=== PATIENT | female | born 1940 | race American Indian/Alaskan Native ===

== ENCOUNTER 2017-07-22 15:04 | Inpatient (IN) | payer MEDICARE ==
[2017-07-22 16:16] LABS: Basophils % (Auto) 0.5 % (0.0-1.8); Eosinophils % (Auto) 2.2 % (0.0-4.3); Hematocrit 32.3 % (30.3-42.9); Hemoglobin 10.3 gm/dl (10.1-14.3); Mean Corpuscular HGB Conc 32 % (30-34); Mean Corpuscular Hemoglobin 29 pg (28-32); Mean Corpuscular Volume 91 fl (79-97); Platelet Count 244 K/mm3 (140-440); Red Blood Count 3.56 M/mm3 (3.65-5.03); Red Cell Distribution Width 15.5 % (13.2-15.2); White Blood Count 7.3 K/mm3 (4.5-11.0)
[2017-07-22 16:28] LABS: Calcium 8.8 mg/dL (8.4-10.2); Potassium 5.4 mmol/L (3.6-5.0)
--- NOTE | 2017-07-22 17:11 | Emergency Department Report ---
HPI - General Chief Complaint: Dyspnea/Respdistress Time Seen by Provider: 07/22/17 15:20 - HPI HPI: This is a 76 year-old female presents to the emergency department by EMS from the gastroenterology procedural Center after the patient appeared to have some oxygen desaturation, respiratory arrest and subsequent code at the end of a EGD. I later spoke to GI, Dr Blackmon, who said that there was no obvious no complications from the procedure but she started having a low oxygen saturation and appeared to stop breathing and therefore was intubated. She did require some chest compressions and I believe she also did receive a dose of epinephrine. The patient presents to the emergency department intubated but appearing awake and alert and trying to pull her endotracheal tube out. Patient does have a history of dementia and the daughter is bedside and says that she will talk and follow some commands but does have some baseline confusion. She also has a past medical history of diabetes, GERD, chronic kidney disease not on hemodialysis and diabetic neuropathy. ED Past Medical Hx - Past Medical History Hx Diabetes: Yes Hx GERD: Yes Hx Renal Disease: Yes (stage 3 kidney failure) Hx Arthritis: Yes Hx Dementia: Yes Additional medical history: Diabetic peripheral neuropathy - Surgical History Additional Surgical History: left knee surgery. - Social History Smoking Status: Never Smoker Substance Use Type: None - Medications Home Medications: Home Medications Medication Instructions Recorded Confirmed Last Taken Type Pregabalin [Lyrica] 100 mg PO BID 09/28/13 07/22/17 07/21/17 History Insulin Aspart [NovoLOG Flexpen] 8 units SQ BID 07/22/17 07/22/17 07/21/17 History Insulin Glargine,Hum.rec.anlog 18 units SQ QHS 07/22/17 07/22/17 07/21/17 History [Toujeo Solostar] Lubiprostone [Amitiza] 8 mcg PO QDAY 07/22/17 07/22/17 07/21/17 History traMADol [Ultram] 50 mg PO Q4HR PRN 07/22/17 07/22/17 07/21/17 History ED Review of Systems ROS: Stated complaint: ALEKSANDR Other details as noted in HPI Comment: Unobtainable due to pts medical conditions Physical Exam - Physical Exam Vital Signs: Vital Signs 07/22/17 07/22/17 07/22/17 15:04 15:15 15:18 Temperature 97.8 F Pulse Rate 70 70 68 Respiratory 13 21 18 Rate Blood Pressure 125/48 125/48 O2 Sat by Pulse 100 100 100 Oximetry 07/22/17 07/22/17 07/22/17 15:30 15:45 15:49 Temperature Pulse Rate 67 67 Respiratory 13 15 20 Rate Blood Pressure 125/48 116/53 O2 Sat by Pulse 99 98 Oximetry 07/22/17 07/22/17 07/22/17 16:00 16:15 16:30 Temperature Pulse Rate 65 65 63 Respiratory 14 12 15 Rate Blood Pressure 116/53 130/52 118/44 O2 Sat by Pulse 98 Oximetry Physical Exam: GENERAL: The patient is well-developed well-nourished. She is currently intubated but appears awake and trying to extubate herself. HENT: Normocephalic. Atraumatic. Patient has moist mucous membranes. Endotracheal tube and collar in place. EYES: Extraocular motions are intact. Pupils equal reactive to light bilaterally. NECK: Supple. Trachea is midline. CHEST/LUNGS: Clear to auscultation. There is no respiratory distress noted. HEART/CARDIOVASCULAR: Regular. There is no tachycardia. There is no gallop rub or murmur. ABDOMEN: Abdomen is soft, nontender. Patient has normal bowel sounds. There is no abdominal distention. SKIN: Skin is warm and dry. NEURO: The patient is awake and following some commands despite intubation. Patient later, after extubation, displayed normal speech. MUSCULOSKELETAL: There is no tenderness or deformity. There is no evidence of acute injury. ED Course Vital Signs 07/22/17 07/22/17 07/22/17 15:04 15:15 15:18 Temperature 97.8 F Pulse Rate 70 70 68 Respiratory 13 21 18 Rate Blood Pressure 125/48 125/48 O2 Sat by Pulse 100 100 100 Oximetry 07/22/17 07/22/17 07/22/17 15:30 15:45 15:49 Temperature Pulse Rate 67 67 Respiratory 13 15 20 Rate Blood Pressure 125/48 116/53 O2 Sat by Pulse 99 98 Oximetry 07/22/17 07/22/17 07/22/17 16:00 16:15 16:30 Temperature Pulse Rate 65 65 63 Respiratory 14 12 15 Rate Blood Pressure 116/53 130/52 118/44 O2 Sat by Pulse 98 Oximetry - Procedure Description Procedures done: Procedure: Extubation. The patient was breathing over her endotracheal tube. She is awake and attempting to extubate herself. She was taken into the examination room with respiratory therapy at bedside. She was placed on cardiac monitors. She had an IV access available. The cuff was deflated. Patient started coughing and during her coughing and/or expiration the endotracheal tube was pulled. She was then placed on a Venturi mask. She was 100% oxygenation on pulse ox monitor and did not appear to be in any respiratory distress. There was no stridor, drooling, trismus. She appeared to tolerate this procedure well. ED Medical Decision Making - Lab Data Result diagrams: 07/22/17 22:42 07/22/17 22:42 - EKG Data -: EKG Interpreted by Me EKG shows normal: sinus rhythm, axis, intervals, QRS complexes, ST-T waves Rate: normal - EKG Data When compared to previous EKG there are: previous EKG unavailable Interpretation: normal EKG - Radiology Data Radiology results: report reviewed, image reviewed interpreted by me: Chest x-ray did not show any obvious rib fracture, pneumothorax or any acute process. Abdominal x-ray shows some nonspecific dilation of stomach and bowel with increased gas. EXAM: CT ABDOMEN PELVIS WO CON HISTORY: Abd pain TECHNIQUE: CT abdomen and pelvis without contrast PRIORS: None. FINDINGS: No acute abnormality identified in the lung bases. No focal abnormality identified within the liver parenchyma. The spleen demonstrates normal size and attenuation. No pancreatic abnormalities seen. Kidneys demonstrate no evidence of hydronephrosis or nephrolithiasis. No ureteral calculus identified. The adrenal glands are unremarkable. Abdominal aorta is normal in caliber. No pathologically enlarged lymph nodes are identified. No signs of free fluid or free air No evidence of small bowel dilatation. No pericolonic inflammatory changes are observed. There is mild distention of the urinary bladder There is some focal central hypodensity present within the cervix and suggestion of endometrial thickening. Follow-up pelvic ultrasound suggested. IMPRESSION: Suggestive hypodensity within the cervix and endometrial thickening. Consider follow-up pelvic ultrasound Otherwise no acute findings on noncontrast CT Transcribed By: YESICA Dictated By: AURY CRUZ MD Electronically Authenticated By: AURY CRUZ MD Signed Date/Time: 07/22/17 0723 - Medical Decision Making This patient arrived after having some type of respiratory arrest and/or cardiac arrest at the end of her EGD with gastroenterology. When she presented she appeared awake and trying to extubate herself. She was breathing over the tube. We took her into the examination room and with close monitoring we extubated her and she did well. We ended up downgrading her supplemental oxygenation down to nasal cannula and she remained in the high 90s. Chest x- ray was done that did not show any obvious rib fractures, pneumothorax or any sequela of the trauma of ACLS with chest compressions. She eventually started talking some and said that she was having abdominal discomfort. Abdominal x- ray showed some nonspecific dilation of the stomach and upper intestinal tract. CT was done that did not show any obvious etiology of her symptoms or any acute process. The patient will be admitted to hospital for further evaluation and treatment and was accepted for admission by the hospitalist, Dr. Scott. - Differential Diagnosis bowel obstruction, dysrhythmia, cardiac arrest, respiratory arrest Critical Care Time: No Critical care attestation.: If time is entered above; I have spent that time in minutes in the direct care of this critically ill patient, excluding procedure time. ED Disposition Clinical Impression: Renal insufficiency, Cardiac arrest, Abdominal pain Dementia Qualifiers: Dementia type: unspecified type Dementia behavioral disturbance: without behavioral disturbance Qualified Code(s): F03.90 - Unspecified dementia without behavioral disturbance Disposition: -09 OP ADMIT IP TO THIS HOSP Is pt being admited?: Yes Condition: Stable Time of Disposition: 16:13
[2017-07-22 17:47] LABS: Alanine Aminotransferase 25 units/L (7-56); Albumin 3.7 g/dL (3.9-5); Albumin/Globulin Ratio 1.6 %; Alkaline Phosphatase 83 units/L (35-129); Bilirubin,Total < 0.20 mg/dL (0.1-1.2)
[2017-07-22 17:48] LABS: Bilirubin,Direct < 0.2 mg/dL (0-0.2)
[2017-07-22] MEDS ORDERED: KIONEX PO ONE (18:10)
--- NOTE | 2017-07-22 18:21 | XRay Report ---
FINAL REPORT EXAM: XR CHEST 1V AP HISTORY: Extubation, SOB TECHNIQUE: upright single view chest PRIORS: None. FINDINGS: Cardiac and mediastinal contours are unremarkable. No focal pulmonary infiltrate is identified. No pleural fluid collection seen. Pulmonary vasculature is unremarkable. IMPRESSION: Negative single-view chest
[2017-07-22] MEDS ORDERED: NACL 0.9% 500 ML 500 ML IV ONE (19:11)
[2017-07-22] MEDS ORDERED: MORPHINE IV ONE ×2 (19:11→23:36)
--- NOTE | 2017-07-22 20:36 | Cat Scan Report ---
FINAL REPORT EXAM: CT ABDOMEN PELVIS WO CON HISTORY: Abd pain TECHNIQUE: CT abdomen and pelvis without contrast PRIORS: None. FINDINGS: No acute abnormality identified in the lung bases. No focal abnormality identified within the liver parenchyma. The spleen demonstrates normal size and attenuation. No pancreatic abnormalities seen. Kidneys demonstrate no evidence of hydronephrosis or nephrolithiasis. No ureteral calculus identified. The adrenal glands are unremarkable. Abdominal aorta is normal in caliber. No pathologically enlarged lymph nodes are identified. No signs of free fluid or free air No evidence of small bowel dilatation. No pericolonic inflammatory changes are observed. There is mild distention of the urinary bladder There is some focal central hypodensity present within the cervix and suggestion of endometrial thickening. Follow-up pelvic ultrasound suggested. IMPRESSION: Suggestive hypodensity within the cervix and endometrial thickening. Consider follow-up pelvic ultrasound Otherwise no acute findings on noncontrast CT
--- NOTE | 2017-07-22 22:02 | History and Physical Report ---
History of Present Illness Chief complaint: I couldnt breathe, and they say my heart stopped! History of present illness: 76 YO Female with DM, GERD, OA, Dementia, CKD presents to ED for evaluation. Pt was in her usual state of health as went to a GI Procedure center today for endoscopy. After the procedure, the patient experienced oxygen desaturation and became hypoxemie. Pt subsequently developed cardio-respiratory arrest and was coded after the procedure was completed. Pt was treated IAW ACLS protocol with return of perfusing cardiac rhythm. Pt was intubated, placed on vent support and EMS called. Pt transported to [facility] for evaluation. The patient was seen and evaluated in the ED and found to be intubated but appearing awake and alert and trying to pull out endotracheal tube. Pt was admitted to ICU for further care. Pt underwent SBT and was successfully extubated in ED. Pt denies fever, chills, CP, Palpitations, NVD, leg swelling/calf pain, hemoptysis, BRBPR, Trauma , productive cough, skin rash, or recent ill contacts. Past History Past Medical History: diabetes, GERD, renal failure, other (dementia) Past Surgical History: total knee replacement Social history: . denies: smoking, alcohol abuse, prescription drug abuse Family history: diabetes, hypertension Medications and Allergies Allergies Allergy/AdvReac Type Severity Reaction Status Date / Time No Known Allergies Allergy Verified 08/30/15 06:06 Home Medications Medication Instructions Recorded Confirmed Last Taken Type Pregabalin [Lyrica] 100 mg PO BID 09/28/13 07/22/17 07/21/17 History Insulin Aspart [NovoLOG Flexpen] 8 units SQ BID 07/22/17 07/22/17 07/21/17 History Insulin Glargine,Hum.rec.anlog 18 units SQ QHS 07/22/17 07/22/17 07/21/17 History [Toujeo Solostar] Lubiprostone [Amitiza] 8 mcg PO QDAY 07/22/17 07/22/17 07/21/17 History traMADol [Ultram] 50 mg PO Q4HR PRN 07/22/17 07/22/17 07/21/17 History Review of Systems Constitutional: other (my heart stopped), no weight loss, no weight gain, no fever, no chills Ears, nose, mouth and throat: no ear pain, no ear discharge, no tinnitis, no decreased hearing, no nose pain, no nasal congestion, no nasal discharge Cardiovascular: no chest pain, no orthopnea, no palpitations, no rapid/ irregular heart beat, no edema, no shortness of breath Respiratory: no cough, no cough with sputum, no excessive sputum, no hemoptysis Gastrointestinal: no abdominal pain, no nausea, no vomiting, no diarrhea, no constipation Genitourinary Female: no pelvic pain, no flank pain, no menorrhagia, no dysuria Rectal: no pain, no incontinence, no bleeding Musculoskeletal: no neck stiffness, no neck pain, no shooting arm pain, no arm numbness/tingling, no low back pain Integumentary: no rash, no pruritis, no redness, no sores, no wounds, no jaundice, no boils Neurological: no head injury, no transient paralysis, no paralysis, no weakness , no parathesias, no numbness, no tingling, no seizures, no syncope Psychiatric: no anxiety, no memory loss, no change in sleep habits, no sleep disturbances, no insomnia, no hypersomnia Endocrine: no cold intolerance, no heat intolerance, no polyphagia, no excessive thirst, no polydipsia, no polyuria, no nocturia, no excessive sweating Hematologic/Lymphatic: no easy bruising, no easy bleeding Allergic/Immunologic: no urticaria, no allergic rhinitis, no wheezing Exam - Constitutional Vitals: Temp Pulse Resp BP Pulse Ox 97.8 F 72 18 162/72 100 07/22/17 15:18 07/22/17 21:31 07/22/17 21:31 07/22/17 21:31 07/22/17 21:31 General appearance: Present: mild distress - EENT Eyes: Present: PERRL ENT: hearing intact, clear oral mucosa - Neck Neck: Present: supple, normal ROM - Respiratory Respiratory effort: normal Respiratory: bilateral: CTA - Cardiovascular Heart Sounds: Present: S1 & S2. Absent: rub, click - Extremities Extremities: pulses symmetrical, No edema Peripheral Pulses: within normal limits - Abdominal General gastrointestinal: Present: soft, non-tender, non-distended, normal bowel sounds Female genitourinary: Present: normal - Integumentary Integumentary: Present: clear, warm, dry - Musculoskeletal Musculoskeletal: gait normal, strength equal bilaterally - Psychiatric Psychiatric: appropriate mood/affect, intact judgment & insight - Neurologic Neurologic: CNII-XII intact, moves all extremities Results - Labs CBC & Chem 7: 07/22/17 22:42 07/22/17 22:42 Labs: Abnormal lab results 07/22/17 07/22/17 07/22/17 Range/Units 15:49 15:49 15:49 RBC 3.56 L (3.65-5.03) M/mm3 RDW 15.5 H (13.2-15.2) % Craven % (Auto) 7.8 H (0.0-7.3) % Potassium 5.4 H (3.6-5.0) mmol/L Chloride 111.0 H (98-107) mmol/L BUN 27 H (7-17) mg/dL Creatinine 1.4 H (0.7-1.2) mg/dL Total Protein 6.0 L (6.3-8.2) g/dL Albumin 3.7 L (3.9-5) g/dL Assessment and Plan - Patient Problems (1) Acute respiratory failure Current Visit: Yes Status: Acute Qualifiers: Respiratory failure complication: hypoxia Qualified Code(s): J96.01 - Acute respiratory failure with hypoxia Plan to address problem: Supplemental oxygen, nebs, wean vent as tolerated, aspiration precautions, Admit to ICU. Pt subsequently extubated while boarding in ED, and subsequently downgraded to telemetry. The high probability of a clinically significant, sudden or life threatening deterioration of the [Pulmonary, renal, cardiac] system(s) required my full and direct attention, intervention and personal management. The aggregate critical care time was [65] minutes. This time is in addition to time spent performing reported procedures but includes the following: [x] Data Review and interpretation [x] Patient assessment and monitoring of vital signs [x] Documentation [x] Medication orders and management (2) Cardiac arrest Current Visit: Yes Status: Acute Plan to address problem: Admit to telemetry, supportive care. BNP, serial cardiac enzymes, echo, d dimer. (3) ARF (acute renal failure) Current Visit: Yes Status: Acute Plan to address problem: IVF resuscitation therapy, urine electrolytes, monitor uop q shift, (4) Diabetes Current Visit: Yes Status: Acute Plan to address problem: ADA diet, insulin, accu check, (5) GERD (gastroesophageal reflux disease) Current Visit: Yes Status: Acute Plan to address problem: PPI therapy, (6) DVT prophylaxis Current Visit: Yes Status: Acute Plan to address problem: SCD to BLE while in bed.
[2017-07-22] MEDS ORDERED: PROVENTIL IH PRN (22:09)
[2017-07-22] MEDS ORDERED: ZOFRAN IV PRN (22:09)
[2017-07-22] MEDS ORDERED: SODIUM CHLORIDE FLUSH SYRINGE 10 ML IV PRN (22:12)
[2017-07-22 23:22] LABS: Chloride 105.7 mmol/L (98-107)
[2017-07-22 23:23] LABS: Basophils % (Auto) 0.5 % (0.0-1.8); Eosinophils % (Auto) 1.8 % (0.0-4.3); Hemoglobin 10.6 gm/dl (10.1-14.3); Mean Corpuscular HGB Conc 31 % (30-34); Mean Corpuscular Hemoglobin 28 pg (28-32); Mean Corpuscular Volume 90 fl (79-97); Platelet Count 267 K/mm3 (140-440); Red Blood Count 3.79 M/mm3 (3.65-5.03); Red Cell Distribution Width 15.6 % (13.2-15.2)
[2017-07-22 23:32] LABS: Potassium 4.2 mmol/L (3.6-5.0)
[2017-07-22 23:34] LABS: White Blood Count 8.8 K/mm3 (4.5-11.0)
[2017-07-23] MEDS: TYLENOL PO PRN ×4 (01:28→18:09)
--- NOTE | 2017-07-23 07:29 | XRay Report ---
SUPINE KUB: History: Abdominal pain. Mild prominence of the stomach. The intestines are normal caliber. There is moderate stool in the proximal colon. No obstructive pattern is suspected. No pathologic calcifications. The lung bases are clear. IMPRESSION: No acute abdominal process identified.
--- NOTE | 2017-07-23 09:02 | Progress Note ---
Assessment and Plan Assessment and plan: 76 YO Female with DM, GERD, OA, Dementia, CKD presents to ED for evaluation. Pt was in her usual state of health as went to a GI Procedure center today for endoscopy. After the procedure, the patient experienced oxygen desaturation and became hypoxemie. Pt subsequently developed cardio-respiratory arrest and was coded after the procedure was completed. Pt was treated IAW ACLS protocol with return of perfusing cardiac rhythm. Pt was intubated, placed on vent support and EMS called. Pt transported to [facility] for evaluation. The patient was seen and evaluated in the ED and found to be intubated but appearing awake and alert and trying to pull out endotracheal tube. Pt was admitted to ICU for further care. Pt underwent SBT and was successfully extubated in ED. Pt denies fever, chills, CP, Palpitations, NVD, leg swelling/calf pain, hemoptysis, BRBPR, Trauma , productive cough, skin rash, or recent ill contacts. Acute Repiratory failure with hypoxia Cardiac Arrest s/p ACLS, CPR, EPI GIVEN PRIOR TO ARRIVAL TO ER Acute Kidney Injury on CKD III likely pre-renal Diabetes Mellitus Dementia GERD Plan: * Appears to be improving, renal function and respiratory status normalizing * Continue oxygen and wean as tolerated, Nebs * Will await Echo report. * Accu check, diabetic diet, SSL * Continue on Telemetry * Resume home medications * Follow with GI Outpatient. * DVT/GI proph. Hospitalist Physical - Constitutional Vitals: Temp Pulse Resp BP Pulse Ox 99.0 F 71 20 147/56 97 07/23/17 03:22 07/23/17 08:36 07/23/17 05:28 07/23/17 03:22 07/23/17 08:48 General appearance: Present: mild distress Results - Labs CBC & Chem 7: 07/22/17 22:42 07/22/17 22:42 Labs: Laboratory Last Values WBC 8.8 K/mm3 (4.5-11.0) 07/22/17 22:42 RBC 3.79 M/mm3 (3.65-5.03) 07/22/17 22:42 Hgb 10.6 gm/dl (10.1-14.3) 07/22/17 22:42 Hct 34.0 % (30.3-42.9) 07/22/17 22:42 MCV 90 fl (79-97) 07/22/17 22:42 MCH 28 pg (28-32) 07/22/17 22:42 MCHC 31 % (30-34) 07/22/17 22:42 RDW 15.6 % (13.2-15.2) H 07/22/17 22:42 Plt Count 267 K/mm3 (140-440) 07/22/17 22:42 Lymph % (Auto) 40.9 % (13.4-35.0) H 07/22/17 22:42 Yell % (Auto) 6.1 % (0.0-7.3) 07/22/17 22:42 Eos % (Auto) 1.8 % (0.0-4.3) 07/22/17 22:42 Baso % (Auto) 0.5 % (0.0-1.8) 07/22/17 22:42 Lymph # 3.6 K/mm3 (1.2-5.4) 07/22/17 22:42 Yell # 0.5 K/mm3 (0.0-0.8) 07/22/17 22:42 Eos # 0.2 K/mm3 (0.0-0.4) 07/22/17 22:42 Baso # 0.0 K/mm3 (0.0-0.1) 07/22/17 22:42 Seg Neutrophils % 50.7 % (40.0-70.0) 07/22/17 22:42 Seg Neutrophils # 4.5 K/mm3 (1.8-7.7) 07/22/17 22:42 Sodium 141 mmol/L (137-145) 07/22/17 22:42 Potassium 4.2 mmol/L (3.6-5.0) D 07/22/17 22:42 Chloride 105.7 mmol/L (98-107) 07/22/17 22:42 Carbon Dioxide 21 mmol/L (22-30) L 07/22/17 22:42 Anion Gap 19 mmol/L 07/22/17 22:42 BUN 22 mg/dL (7-17) H 07/22/17 22:42 Creatinine 1.2 mg/dL (0.7-1.2) 07/22/17 22:42 Estimated GFR 53 ml/min 07/22/17 22:42 BUN/Creatinine Ratio 18 % 07/22/17 22:42 Glucose 45 mg/dL (65-100) L 07/22/17 22:42 POC Glucose 113 (70-105) H 07/23/17 00:44 Calcium 9.0 mg/dL (8.4-10.2) 07/22/17 22:42 Total Bilirubin < 0.20 mg/dL (0.1-1.2) 07/22/17 15:49 Direct Bilirubin < 0.2 mg/dL (0-0.2) 07/22/17 15:49 Indirect Bilirubin 0.0 mg/dL 07/22/17 15:49 AST 34 units/L (5-40) 07/22/17 15:49 ALT 25 units/L (7-56) 07/22/17 15:49 Alkaline Phosphatase 83 units/L (35-129) 07/22/17 15:49 Total Creatine Kinase 95 units/L (30-135) 07/22/17 15:49 Troponin T < 0.010 ng/mL (0.00-0.029) 07/23/17 05:19 NT-Pro-B Natriuret Pep 564.7 pg/mL (0-900) 07/22/17 22:42 Total Protein 6.0 g/dL (6.3-8.2) L 07/22/17 15:49 Albumin 3.7 g/dL (3.9-5) L 07/22/17 15:49 Albumin/Globulin Ratio 1.6 % 07/22/17 15:49 TSH 1.150 mlU/mL (0.270-4.200) 07/22/17 15:49 Urine Creatinine 50.2 mg/dL (0.1-20.0) H 07/23/17 01:42 Urine Sodium 101 mmol/L 07/23/17 01:42
[2017-07-23] MEDS ORDERED: PNEUMOVAX 23 IM ONE (12:00)
[2017-07-23] MEDS ORDERED: Fluarix Quad 2017-2018(36 MOS+ IM ONE (12:00)
[2017-07-23] MEDS ORDERED: D50W (25GM) Syringe IV PRN (12:46)
--- NOTE | 2017-07-23 16:08 | Progress Note ---
Assessment and Plan Assessment and plan: 76 YO Female with DM, GERD, OA, Dementia, CKD presents to ED for evaluation. Pt was in her usual state of health as went to a GI Procedure center today for endoscopy. After the procedure, the patient experienced oxygen desaturation and became hypoxemie. Pt subsequently developed cardio-respiratory arrest and was coded after the procedure was completed. Pt was treated IAW ACLS protocol with return of perfusing cardiac rhythm. Pt was intubated, placed on vent support and EMS called. Pt transported to [facility] for evaluation. The patient was seen and evaluated in the ED and found to be intubated but appearing awake and alert and trying to pull out endotracheal tube. Pt was admitted to ICU for further care. Pt underwent SBT and was successfully extubated in ED. Pt denies fever, chills, CP, Palpitations, NVD, leg swelling/calf pain, hemoptysis, BRBPR, Trauma , productive cough, skin rash, or recent ill contacts. Acute Repiratory failure with hypoxia Cardiac Arrest s/p ACLS, CPR, EPI GIVEN PRIOR TO ARRIVAL TO ER Acute Kidney Injury on CKD III likely pre-renal Diabetes Mellitus Costochondritis Dementia GERD Plan: * Appears to be improving, renal function and respiratory status normalizing * Continue oxygen and wean as tolerated, Nebs * Will await Echo report. * Rib series. * Accu check, diabetic diet, SSL * Continue on Telemetry * Resume home medications * Follow with GI Outpatient. * DVT/GI proph. History Interval history: Patient is examined this morning in no acute distress reports mild pain reproducible on the left submammary area. Otherwise denies chest pain nausea vomiting or diarrhea. Hospitalist Physical - Physical exam Narrative exam: VITAL SIGNS: Reviewed. GENERAL: The patient appeared well nourished and normally developed. Vital signs as documented. HEAD: No signs of head trauma. EYES: Pupils are equal. Extraocular motions intact. EARS: Hearing grossly intact. MOUTH: Oropharynx is normal. NECK: No adenopathy, no JVD. CHEST: Chest with clear breath sounds bilaterally. No wheezes, rales, or rhonchi. CARDIAC: Regular rate and rhythm. S1 and S2, without murmurs, gallops, or rubs. VASCULAR: No Edema. Peripheral pulses normal and equal in all extremities. ABDOMEN: Soft, without detectable tenderness. No sign of distention. No rebound or guarding, and no masses palpated. Bowel Sounds normal. MUSCULOSKELETAL: Reproducible tenderness of the left axillary area. Good range of motion of all major joints. Extremities without clubbing, cyanosis or edema. NEUROLOGIC EXAM: Alert and oriented x 3. No focal sensory or strength deficits. Speech normal. Follows commands. PSYCHIATRIC: Mood normal. SKIN: No rash or lesions. - Constitutional Vitals: Temp Pulse Resp BP Pulse Ox 99.0 F 71 20 147/56 97 07/23/17 03:22 07/23/17 08:36 07/23/17 05:28 07/23/17 03:22 07/23/17 08:48 General appearance: Present: mild distress Results - Labs CBC & Chem 7: 07/22/17 22:42 07/22/17 22:42 Labs: Laboratory Last Values WBC 8.8 K/mm3 (4.5-11.0) 07/22/17 22:42 RBC 3.79 M/mm3 (3.65-5.03) 07/22/17 22:42 Hgb 10.6 gm/dl (10.1-14.3) 07/22/17 22:42 Hct 34.0 % (30.3-42.9) 07/22/17 22:42 MCV 90 fl (79-97) 07/22/17 22:42 MCH 28 pg (28-32) 07/22/17 22:42 MCHC 31 % (30-34) 07/22/17 22:42 RDW 15.6 % (13.2-15.2) H 07/22/17 22:42 Plt Count 267 K/mm3 (140-440) 07/22/17 22:42 Lymph % (Auto) 40.9 % (13.4-35.0) H 07/22/17 22:42 [place] % (Auto) 6.1 % (0.0-7.3) 07/22/17 22:42 Eos % (Auto) 1.8 % (0.0-4.3) 07/22/17 22:42 Baso % (Auto) 0.5 % (0.0-1.8) 07/22/17 22:42 Lymph # 3.6 K/mm3 (1.2-5.4) 07/22/17 22:42 [place] # 0.5 K/mm3 (0.0-0.8) 07/22/17 22:42 Eos # 0.2 K/mm3 (0.0-0.4) 07/22/17 22:42 Baso # 0.0 K/mm3 (0.0-0.1) 07/22/17 22:42 Seg Neutrophils % 50.7 % (40.0-70.0) 07/22/17 22:42 Seg Neutrophils # 4.5 K/mm3 (1.8-7.7) 07/22/17 22:42 Sodium 141 mmol/L (137-145) 07/22/17 22:42 Potassium 4.2 mmol/L (3.6-5.0) D 07/22/17 22:42 Chloride 105.7 mmol/L (98-107) 07/22/17 22:42 Carbon Dioxide 21 mmol/L (22-30) L 07/22/17 22:42 Anion Gap 19 mmol/L 07/22/17 22:42 BUN 22 mg/dL (7-17) H 07/22/17 22:42 Creatinine 1.2 mg/dL (0.7-1.2) 07/22/17 22:42 Estimated GFR 53 ml/min 07/22/17 22:42 BUN/Creatinine Ratio 18 % 07/22/17 22:42 Glucose 45 mg/dL (65-100) L 07/22/17 22:42 POC Glucose 113 (70-105) H 07/23/17 00:44 Calcium 9.0 mg/dL (8.4-10.2) 07/22/17 22:42 Total Bilirubin < 0.20 mg/dL (0.1-1.2) 07/22/17 15:49 Direct Bilirubin < 0.2 mg/dL (0-0.2) 07/22/17 15:49 Indirect Bilirubin 0.0 mg/dL 07/22/17 15:49 AST 34 units/L (5-40) 07/22/17 15:49 ALT 25 units/L (7-56) 07/22/17 15:49 Alkaline Phosphatase 83 units/L (35-129) 07/22/17 15:49 Total Creatine Kinase 95 units/L (30-135) 07/22/17 15:49 Troponin T < 0.010 ng/mL (0.00-0.029) 07/23/17 05:19 NT-Pro-B Natriuret Pep 564.7 pg/mL (0-900) 07/22/17 22:42 Total Protein 6.0 g/dL (6.3-8.2) L 07/22/17 15:49 Albumin 3.7 g/dL (3.9-5) L 07/22/17 15:49 Albumin/Globulin Ratio 1.6 % 07/22/17 15:49 TSH 1.150 mlU/mL (0.270-4.200) 07/22/17 15:49 Urine Creatinine 50.2 mg/dL (0.1-20.0) H 07/23/17 01:42 Urine Sodium 101 mmol/L 07/23/17 01:42
[2017-07-23] MEDS: ULTRAM PO PRN (19:30)
[2017-07-23] MEDS ORDERED: ATIVAN IV PRN (21:11)
[2017-07-23] MEDS ORDERED: HALDOL IM PRN (21:45)
[2017-07-23] MEDS ORDERED: NON-FORMULARY (Insulin Aspart [Novolog Flexpen] 8 UNITS) SQ SCH (22:00)
[2017-07-23] MEDS ORDERED: LEVEMIR SUB-Q SCH (22:00)
[2017-07-24] MEDS: LYRICA PO SCH ×2 (00:17→13:46)
[2017-07-24] MEDS: ULTRAM PO PRN (00:18)
[2017-07-24] MEDS ORDERED: LEVEMIR SUB-Q SCH ×2 (01:00→22:00)
--- NOTE | 2017-07-24 07:21 | XRay Report ---
LEFT RIBS, 3 VIEWS: History: Rib fracture, pain under left breast. Routine views of the rib cage demonstrate normal mineralization with no significant contour abnormalities, fractures or destructive lesions. PA view of the chest demonstrates no underlying cardiopulmonary abnormalities, fluid or pneumothorax. Mild to moderate bone demineralization is suspected. IMPRESSION: Osteopenia. No displaced rib fracture is detected.
[2017-07-24 09:17] VITALS: BP 136/53
[2017-07-24] MEDS ORDERED: LUBIPROSTONE 8 MCG PO SCH (10:00)
--- NOTE | 2017-07-24 13:53 | Discharge Summary ---
Providers - Providers Date of Admission: 07/22/17 22:09 Attending physician: ЮЛИЯ SERRANO MD 07/22/17 Consult to Cardiac Rehabilitation [CONS] Routine Reason For Exam: Phase I Primary care physician: [employer]AGE [employer] FAMILY COUNSELOR Hospitalization Reason for admission: s/p arrest Condition: Stable Hospital course: 76 YO Female with DM, GERD, OA, Dementia, CKD presents to ED for evaluation. Pt was in her usual state of health as went to a GI Procedure center today for endoscopy. After the procedure, the patient experienced oxygen desaturation and became hypoxemie. Pt subsequently developed cardio-respiratory arrest and was coded after the procedure was completed. Pt was treated IAW ACLS protocol with return of Normal cardiac rhythm. Pt was intubated, placed on vent support and EMS called. Pt transported to [facility] for evaluation. The patient was seen and evaluated in the ED and found to be intubated but appearing awake and alert and trying to pull out endotracheal tube. Pt was admitted to ICU for further care. Pt underwent SBT and was successfully extubated in ED. Pt denies fever, chills, CP, Palpitations, NVD, leg swelling/calf pain, hemoptysis, BRBPR, Trauma, productive cough, skin rash, or recent ill contacts. Patient continued to improve and was monitored 48 hours on tele with no new event. I did speak with the daughter who stated that the patient had Endoscopy due to poor PO intake and intermittent nausea and will follow with GI outpatient. Patient did have an episode of sundowning but mentation resolved prior to discharge. Discharge Diagnosis Acute Respiratory failure with hypoxia Cardiac Arrest s/p ACLS, Acute Kidney Injury on CKD III likely pre-renal Diabetes Mellitus Costochondritis Acute encephalopathy secondary to sundown effect. Dementia GERD Disposition: DC/TX-06 HOME UNDER HOME [facility] Time spent for discharge: 35 mins Core Measure Documentation - Palliative Care Palliative Care/ Comfort Measures: Not Applicable - Core Measures Any of the following diagnoses?: none - VTE Discharge Requirements Deep Vein Thrombosis/Pulmonary Embolism Present on Admission: No Exam - Physical Exam Narrative exam: VITAL SIGNS: Reviewed. GENERAL: The patient appeared well nourished and normally developed. Vital signs as documented. HEAD: No signs of head trauma. EYES: Pupils are equal. Extraocular motions intact. EARS: Hearing grossly intact. MOUTH: Oropharynx is normal. NECK: No adenopathy, no JVD. CHEST: Chest with clear breath sounds bilaterally. No wheezes, rales, or rhonchi. CARDIAC: Regular rate and rhythm. S1 and S2, without murmurs, gallops, or rubs. VASCULAR: No Edema. Peripheral pulses normal and equal in all extremities. ABDOMEN: Soft, without detectable tenderness. No sign of distention. No rebound or guarding, and no masses palpated. Bowel Sounds normal. MUSCULOSKELETAL: Reproducible tenderness of the left axillary area. Good range of motion of all major joints. Extremities without clubbing, cyanosis or edema. NEUROLOGIC EXAM: Alert and oriented x 3. No focal sensory or strength deficits. Speech normal. Follows commands. PSYCHIATRIC: Mood normal. SKIN: No rash or lesions. - Constitutional Vitals: Temp Pulse Resp BP Pulse Ox 97.8 F 77 16 136/53 98 07/24/17 08:12 07/24/17 08:12 07/24/17 08:12 07/24/17 08:12 07/24/17 08:34 Plan Activity: advance as tolerated, fall precautions Diet: diabetic Special Instructions: record daily weights, record daily BP diary, record blood sugar diary, physical therapy, occupational therapy, home health RN Follow up with: PRIMARY MD CLIFFORD [Primary Care Provider] - 3-5 Days BRIANNA VIRGEN MD [Staff Physician] - 7 Days
== END 2017-07-24 18:25 | disposition home health service (06) | DRG 189 ==
LOC: ED 15:04 → 4A 22:09
PROVIDERS: ADMIT Internal Medicine; ATTEND Internal Medicine
PROC: 5A12012 Performance of Cardiac Output, Single, Manual (ICD-10-PCS; principal; 2017-07-22)
PROC: 3E0234Z Introduction of Serum, Toxoid and Vaccine into Muscle, Percutaneous Approach (ICD-10-PCS; 2017-07-23)
DX: J96.01 Acute respiratory failure with hypoxia (principal); I46.9 Cardiac arrest, cause unspecified; G93.40 Encephalopathy, unspecified; N17.9 Acute kidney failure, unspecified; M94.0 Chondrocostal junction syndrome [Tietze]; K21.9 Gastro-esophageal reflux disease without esophagitis; F03.90 Unspecified dementia, unspecified severity, without behavioral disturbance, psychotic disturbance, mood disturbance, and anxiety; E11.22 Type 2 diabetes mellitus with diabetic chronic kidney disease; N18.3 Chronic kidney disease, stage 3 (moderate); M19.90 Unspecified osteoarthritis, unspecified site; E11.42 Type 2 diabetes mellitus with diabetic polyneuropathy; Z96.659 Presence of unspecified artificial knee joint; Z83.3 Family history of diabetes mellitus; Z82.49 Family history of ischemic heart disease and other diseases of the circulatory system; Z23 Encounter for immunization
CPT/HCPCS: 36415; 71010; 74000; 74176; 80048; 80074; 82550; 82570; 82962; 83880; 84300; 84443; 84484; 85025; 90686; 90732; 93005; 93010; 93306; 96374; 96376; J1630; J1818; J2060; J2270; J7040

== ENCOUNTER 2019-09-02 09:17 | Observation (INO) | payer MEDICARE ==
[2019-09-02] MEDS ORDERED: SODIUM CHLORIDE 0.9% 1000 ML 1,000 ML IV ONE (09:51)
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
--- NOTE | 2019-09-02 10:19 | XRay Report ---
CHEST 1 VIEW INDICATION: Medical Clearance Psych. COMPARISON: None FINDINGS: Support devices: None. Heart: Within normal limits. Lungs/Pleura: No acute air space or interstitial disease. Additional findings: None. IMPRESSION: No acute findings. Signer Name: Rafael Harrington Jr, MD Signed: 09/02/2019 10:15 AM Workstation Name: [id number]
--- NOTE | 2019-09-02 10:53 | Cat Scan Report ---
NONENHANCED CT SCAN OF THE HEAD: INDICATION / CLINICAL INFORMATION: 78 years Female; ams. TECHNIQUE: Routine CT head without contrast. All CT scans at this location are performed using CT dos e reduction for ALARA by means of automated exposure control. COMPARISON: None. FINDINGS: BRAIN / INTRACRANIAL CONTENTS: No acute hemorrhage, mass effect, midline shift, hydrocephalus, or ac jae, large territorial infarct. No chronic ischemia or focal area of encephalomalacia; periventricula r low attenuation areas in the corpus stratum Chronic microvascular faint angiopathy; mild volume los s in the parietal lobe gyri \ CRANIOCERVICAL JUNCTION: No significant abnormality. ORBITS: No significant abnormality of visualized orbits. SINUSES / MASTOIDS: No significant abnormality of the visualized paranasal sinuses or mastoid air sirisha ls. ADDITIONAL FINDINGS: None. IMPRESSION: No acute parenchymal lesion in the brain Signer Name: Felipe Zhao MD Signed: 09/02/2019 10:49 AM Workstation Name: [id number]
[2019-09-02 11:07] LABS: Hematocrit 30.5 % (30.3-42.9); Hemoglobin 9.9 gm/dl (10.1-14.3); Mean Corpuscular HGB Conc 32 % (30-34); Mean Corpuscular Volume 86 fl (79-97); Platelet Count 313 K/mm3 (140-440); Red Blood Count 3.54 M/mm3 (3.65-5.03); Red Cell Distribution Width 14.9 % (13.2-15.2)
[2019-09-02 11:20] LABS: Albumin 4.3 g/dL (3.9-5)
[2019-09-02 11:44] LABS: Basophils % (Manual) 0 % (0.0-1.8); Total Cells Counted 100
[2019-09-02 11:45] LABS: Platelet Estimate Consistent w Auto; Schistocytes Few; Target Cells Rare; Tear Drop Cells Few
[2019-09-02 12:15] LABS: Bacteria,Urine 2+ /HPF (Negative); Bilirubin,Urine NEG (Negative); Blood,Urine MOD (Negative); Color,Urine Yellow (Yellow); Urobilinogen,Urine < 2.0 mg/dL (<2.0)
[2019-09-02 12:16] LABS: WBC,Urine > 182.0 /HPF (0.0-6.0)
[2019-09-02] MEDS: CEFEPIME/NS 2 GM/100 ML 2 GM/100 ML BAG IV SCH ×2 (13:02→22:50)
[2019-09-02] MEDS ORDERED: LUBIPROSTONE 8 MCG PO SCH (15:15)
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
[2019-09-02] MEDS: SODIUM CHLORIDE 0.9% 1000 ML 1,000 ML IV SCH (17:21)
[2019-09-02] MEDS ORDERED: LATANOPROST 0.005% OPHTH SOLN 2.5 ML OU SCH (18:00)
[2019-09-02] MEDS: INSULIN REGULAR, HUMAN 100 UNITS/1 ML SUB-Q SCH ×2 (18:38→23:12)
[2019-09-02] MEDS: COMBIGAN 0.2-0.5% OPHTH SOLN OU SCH (20:22)
[2019-09-02] MEDS: PREGABALIN 25 MG CAP PO SCH (21:38)
[2019-09-03] MEDS: SODIUM CHLORIDE 0.9% 1000 ML 1,000 ML IV SCH (04:33)
[2019-09-03] MEDS: INSULIN REGULAR, HUMAN 100 UNITS/1 ML SUB-Q SCH ×3 (07:52→16:21)
[2019-09-03] MEDS: CEFEPIME/NS 2 GM/100 ML 2 GM/100 ML BAG IV SCH (09:59)
[2019-09-03] MEDS: PREGABALIN 25 MG CAP PO SCH (10:00)
--- NOTE | 2019-09-03 13:13 | Consultation ---
History of Present Illness - Reason for Consult Consult date: 09/03/19 Reason for consult: strange behavior - Chief Complaint Chief complaint: AMS - History of Present Psychiatric Illness Bita Jj is a 78 y/o female patient who presented to the ER for altered mental status. The patient was found to have a UTI. During my interview, the patient was sitting up in bed, eating. She was smiling, pleasant, polite, calm and cooperative. She is dressed appropriately. She makes good eye contact. She is a/o x 1. Mrs. Steiner says she came to the hospital for "pain in her stomach not not seeing well." She says she's "starting to feel better, but not so good from stomach pain." She says she "slept very well." She says her appetite is "good," but "thinks this is the first time she's eaten since she's been in the hospital." When asked about psych history or meds, she replies, "no, never." The patient then adds, "I'm healthy. I've only been in the hospital when I had children." She denies SI/HI, when asked the patient laughs, and replies, "I want to get better now hurt myself." She denies hallucinations of any kind. Mrs. Steiner denies any elicit drug use or history of use. She also denies ETOH use. She says she "used to smoke cigarettes many years ago." PAST PSYCHIATRIC HISTORY: Diagnoses: Denies Suicide attempts or Self-harm behavior: denies Prior psychiatric hospitalizations:denies Substance Abuse history: denies Previous psychiatric medications tried: Denies Outpatient treatment: Denies REVIEW OF SYSTEMS Constitutional: Negative for weight loss ENT: Negative for stridor Respiratory: Negative for cough All other systems reviewed and are negative PAST MEDICAL HISTORY: Denies any past medical history Family Psychiatric History None reported or documented SOCIAL HISTORY Marital Status: Living Arrangements: Daughter Employment Status: retired Access to guns/weapons: Denies Education: 6th grade History of Abuse: Denies Legal History: Denies MSE Appearance: In bed. Eating. Appropriate clothing. Good eye contact. Behavior: Polite, pleasant, calm and cooperative Mood: "okay" Affect: consisted with mood Thought Process: Goal directed Speech: Normal tone and pace Thought Content Harmfulness Denies SI/HI Hallucinations: patient denies Delusions: none elicited Consciousness: Alert Cognition/Memory: a/o x 1 Insight/Judgment: Limited Assessment: Altered Mental Status Treatment Plan -Start Risperidone 0.25mg po daily to help with psychosis until UTI is cleared Medical: Per primary team Disposition: The patient does not meet requirement for acute inpatient psyc [facility] hospitalization at this time. Being that the patient was at her baseline last Thursday during her well check, AMS is likely due to underlying infection (UTI). Will sign off Please call with any questions or concerns. Thank you for this consult. Medications and Allergies Allergies Allergy/AdvReac Type Severity Reaction Status Date / Time No Known Allergies Allergy Verified 08/30/15 06:06 Home Medications Medication Instructions Recorded Confirmed Last Taken Type Pregabalin 100 mg PO BID 09/28/13 07/22/17 07/21/17 History Insulin Aspart (Nf) [NovoLOG 8 units SQ BID 07/22/17 07/22/17 07/21/17 History Flexpen] Insulin Glargine,Hum.rec.anlog 18 units SQ QHS 07/22/17 07/22/17 07/21/17 Histo ry [Toujeo Solostar] Lubiprostone [Amitiza] 8 mcg PO QDAY 07/22/17 07/22/17 07/21/17 History Brimonidine/Timolol 0.2-0.5% 1 drops OP Q12H 07/24/17 07/24/17 07/23/17 20:00 History [Combigan 0.2-0.5%] Latanoprost 0.005% 1 drop OP QPM 07/24/17 07/24/17 07/23/17 20:00 History Active Meds: Active Medications Brimonidine/Timolol (Combigan 0.2-0.5%) 1 drops OU Q12H [facility] Last Admin: 09/02/19 20:22 Dose: 1 drops Documented by: Cefepime HCl (Cefepime/Ns 2 Gm/100 Ml) 2 gm in 100 mls @ 200 mls/hr IV Q12HR [facility]; Protocol Last Admin: 09/03/19 09:59 Dose: 200 mls/hr Documented by: Sodium Chloride (Nacl 0.9% 1000 Ml) 1,000 mls @ 100 mls/hr IV [facility] Last Admin: 09/03/19 04:33 Dose: 100 mls/hr Documented by: Insulin Human Regular (Humulin R) 0 units SUB-Q ACHS [facility]; Protocol Last Admin: 09/03/19 07:52 Dose: Not Given Documented by: Latanoprost (Latanoprost 0.005%) 1 drops OU QPM [facility] Last Admin: 09/02/19 21:41 Dose: 1 drops Documented by: Miscellaneous Medication (Lubiprostone [Amitiza]) 8 mcg PO QDAY [facility] Pregabalin (Pregabalin) 100 mg PO BID [facility] Last Admin: 09/03/19 10:00 Dose: 100 mg Documented by: Mental Status Exam - Vital signs Last Vital Signs Temp 99.0 F 09/03/19 07:20 Pulse 80 09/03/19 07:20 Resp 18 09/03/19 07:20 BP 124/42 09/03/19 07:20 Pulse Ox 99 09/03/19 07:20 Results Result Diagrams: 09/02/19 10:00 09/02/19 10:00 Abnormal lab results 09/02/19 09/02/19 09/03/19 Range/Units 17:36 22:45 11:41 POC Glucose 148 H 332 H 128 H (70-105) All other labs normal.
[2019-09-03 14:14] VITALS: BP 161/51
--- NOTE | 2019-09-03 14:35 | Discharge Summary ---
Providers - Providers Date of Admission: 09/02/19 14:01 Date of discharge: 09/03/19 Attending physician: RANGEL GARDINER 09/02/19 15:10 Consult to Mental Health [CONS] Routine Reason For Exam: psychosis Place consult to:: mental health Notified:: WADE 09/02/19 15:19 Physical Therapy Evaluation and Treat [CONS] Routine Comment: Reason For Exam: placement Primary care physician: SAM CHICAS MD Hospitalization Condition: Stable Hospital course: Discharge diagnosis: Acute encephalopathy with delirium vs acute psychosis - resolved UTI w/o sepsis BRITNEY with vasomotor nephropathy - cr stable dementia DM type 2 with neuropathy Hyperlipidemia GERD Disposition: TO HOME OR SELFCARE Time spent for discharge: 34 minutes Core Measure Documentation - Palliative Care Palliative Care/ Comfort Measures: Not Applicable - Core Measures Any of the following diagnoses?: none Exam - Constitutional Vitals: Temp Pulse Resp BP Pulse Ox 98.6 F 85 18 161/51 95 09/03/19 13:37 09/03/19 13:37 09/03/19 13:37 09/03/19 13:37 09/03/19 13:37 Plan Activity: advance as tolerated Weight Bearing Status: Weight Bear as Tolerated Diet: diabetic Additional Instructions: Repeat BMP next week Follow up with: SAM CHICAS MD [Primary Care Provider] - 3-5 Days Prescriptions: levoFLOXacin [Levaquin TAB] 500 mg PO QDAY #4 tablet
[2019-09-03] MEDS: COMBIGAN 0.2-0.5% OPHTH SOLN OU SCH (16:15)
[2019-09-03 16:24] LABS: Calcium 8.7 mg/dL (8.4-10.2)
[2019-09-04] MEDS ORDERED: risperiDONE 0.25 MG TAB PO SCH (10:00)
== END 2019-09-03 16:50 | disposition home or self-care (01) ==
LOC: ED 09:17 → 2B-ACE 14:01
PROVIDERS: ADMIT Internal Medicine; ATTEND Internal Medicine
DX: G93.40 Encephalopathy, unspecified (principal); N39.0 Urinary tract infection, site not specified; N17.0 Acute kidney failure with tubular necrosis; F03.90 Unspecified dementia, unspecified severity, without behavioral disturbance, psychotic disturbance, mood disturbance, and anxiety; E11.40 Type 2 diabetes mellitus with diabetic neuropathy, unspecified; E78.5 Hyperlipidemia, unspecified; K21.9 Gastro-esophageal reflux disease without esophagitis; R41.0 Disorientation, unspecified; Z79.4 Long term (current) use of insulin; Z79.899 Other long term (current) drug therapy
CPT/HCPCS: 36415; 70450; 71045; 80048; 80053; 81001; 82140; 82962; 84443; 85007; 85025; 87040; 87086; 96361; 96365; 96366; 96372; 97116; 97161; 97530; 99284; G0378; J0692; J7030; J1815

== ENCOUNTER 2021-04-15 13:17 | Emergency (ER) | payer MEDICARE ==
--- NOTE | 2021-04-15 16:10 | Emergency Department Report ---
Blank Doc - Documentation Documentation: 80-year-old female that presents with right-sided chest/rib pain. Denies any injuries or trauma. 1- This is a initial triage assessment/medical screening only. Full assessment and work-up will be completed once the patient is in proper hospital gown, ED bed and in a private room setting. This initial assessment/diagnostic orders/clinical plan/ treatment(s) is/are subject to change based on pt's health status, clinical progression and re-assessment by fellow clinical providers in the ED. Further treatment and workup at subsequent clinical providers discretion. Patient/guardians urged not to elope from ED as their condition may be serious if not clinically assessed and managed. 2-cardiac work-up
--- NOTE | 2021-04-15 16:23 | XRay Report ---
CHEST 1 VIEW 04/15/2021 4:28 PM INDICATION / CLINICAL INFORMATION: Chest Pain. Right rib pain for several months. COMPARISON: 09/02/2019 FINDINGS: SUPPORT DEVICES: None. HEART / MEDIASTINUM: No significant abnormality. LUNGS / PLEURA: No significant pulmonary or pleural abnormality. No pneumothorax. ADDITIONAL FINDINGS: There is scoliosis of the thoracolumbar spine. No displaced fracture identified. IMPRESSION: 1. No acute findings. Signer Name: Alber Pope MD Signed: 04/15/2021 4:19 PM Workstation Name: [id number]
[2021-04-15 17:17] LABS: Basophils # (Auto) 0.1 K/mm3 (0.0-0.1); Basophils % (Auto) 0.8 % (0.0-1.8); Eosinophils # (Auto) 0.1 K/mm3 (0.0-0.4); Eosinophils % (Auto) 1.8 % (0.0-4.3); Hematocrit 33.6 % (30.3-42.9); Hemoglobin 10.6 gm/dl (10.1-14.3); Lymphocytes # (Auto) 3.2 K/mm3 (1.2-5.4); Lymphocytes % (Auto) 38.6 % (13.4-35.0); Mean Corpuscular HGB Conc 32 % (30-34); Mean Corpuscular Volume 91 fl (79-97); Monocytes # (Auto) 0.6 K/mm3 (0.0-0.8); Monocytes % (Auto) 6.7 % (0.0-7.3); Platelet Count 326 K/mm3 (140-440); Red Cell Distribution Width 16.1 % (13.2-15.2)
[2021-04-15 17:27] LABS: INR 0.89 (0.87-1.13)
[2021-04-15 17:28] LABS: Alanine Aminotransferase 11 units/L (7-56); Albumin 4.2 g/dL (3.9-5); BUN/Creatinine Ratio 15; Blood Urea Nitrogen 29 mg/dL (7-17); Calcium 10.7 mg/dL (8.4-10.2); Hemolysis Index 8
[2021-04-16 08:18] VITALS: BP 196/45
== END 2021-04-16 13:00 ==
LOC: ED 13:17
DX: R07.81 Pleurodynia (principal); Z53.21 Procedure and treatment not carried out due to patient leaving prior to being seen by health care provider
CPT/HCPCS: 36415; 71045; 80053; 84484; 85025; 85610; 85730